=== PATIENT | male | born 1975 | race Two or more races ===

== ENCOUNTER 2020-09-30 18:19 | Emergency (ER) | payer MEDICAID ==
[~2020-09-30] VITALS: Ht 177.8 cm; Wt 85.0 kg
--- NOTE | 2020-09-30 18:53 | NUR ---
PT SITTING ON END OF GURJOSE, MOANING, REFUSING TO ANSWER QUESTIONS. ASSISTED PT BACK FURTHER ON ANUP, SIDE RAILS UP X2.
--- NOTE | 2020-09-30 19:05 | NUR ---
UNABLE TO COMPLETE MED REC, AT THIS TIME
[2020-09-30 19:30] VITALS: BP 139/96
--- NOTE | 2020-09-30 20:00 | NUR ---
SLEEPING ON GURNEY, EVEN CHEST RISE & FALL NOTED, MONITORING CONTINUING, SIDE RAILS UP X2
--- NOTE | 2020-09-30 21:25 | NUR ---
PT SITTING ON CHAIR IN ROOM PUTTING HIS SHOES ON. STATED "I'M READY TO GO". PROVIDER WILL BE NOTIFIED.
--- NOTE | 2020-09-30 21:55 | NUR ---
PT A&OX4, RESP EVEN & UNLABORED. PT REPORTS FEELING BETTER.
== END 2020-09-30 22:03 | disposition home or self-care (01) ==
LOC: ED 19:35
DX: F10.129 Alcohol abuse with intoxication, unspecified (principal); F15.129 Other stimulant abuse with intoxication, unspecified; Y90.9 Presence of alcohol in blood, level not specified
CPT/HCPCS: 99283